=== PATIENT | male | born 1985 | race Caucasian/White ===

== ENCOUNTER 2017-01-18 08:11 | Observation (INO) | payer OTHER ==
[~2017-01-18] VITALS: Ht 190.5 cm; Wt 98.0 kg
[~2017-01-18 08:11] MED LIST: MULT-506 PO; PRLSR20 PO
[2017-01-18] MEDS ORDERED: SODIUM CHLORIDE 0.9% 1000ML 2,000 ML IV STA (08:20)
[2017-01-18] MEDS ORDERED: DILTIAZEM BOLUS / DRIP IV STA (08:20)
[2017-01-18] MEDS ORDERED: ONDANSETRON INJ 2 MG/ML 2 ML VIAL IV STA (08:23)
[2017-01-18] MEDS ORDERED: ASPIRIN 81 MG CHEW PO STA (08:24)
[2017-01-18] MEDS ORDERED: DILTIAZEM HCL INJ 125 MG in DEXTROSE 5% 100ML IV PRN (08:30)
[2017-01-18 08:35] LABS: BASO % 0.4 %; BASO ABS # 0.04 K/uL (0-0.2); COMPLETE YES; HEMATOCRIT 45.4 % (42-52); IG% 0.3 %; LYMPH % 16.5 %; LYMPH ABS # 1.82 K/uL (1.2-3.4); MEAN CELL VOLUME 86.5 fL (80-100); MEAN CORPUSCULAR HEMOGLOBIN 29.7 pg (25-34); MEAN CORPUSCULAR HGB CONC 34.4 g/dl (32-36); MEAN PLATELET VOLUME 9.3 fL (7.4-10.4); MONO % 4.2 %; NEUT % 76.6 %; PLATELET COUNT 165 K/uL (130-400); RED BLOOD COUNT 5.25 M/uL (4.7-6.1); WHITE BLOOD COUNT 11.04 K/uL (4.8-10.8)
--- NOTE | 2017-01-18 08:35 | DIAGNOSTIC IMAGING REPORT ---
SINGLE VIEW CHEST CLINICAL HISTORY: Atypical chest pain. FINDINGS: An AP, portable, upright chest radiograph is compared to study dated 04/15/2015. The examination is degraded by portable technique and patient rotation. The cardiomediastinal silhouette is unremarkable. The lungs and pleural spaces are clear. No pneumothorax is seen. The bony thorax is grossly intact. IMPRESSION: No active disease in the chest. Electronically signed by: Danny Kimble M.D. 01/18/2017 8:34 AM Dictated Date/Time: 01/18/2017 8:34 AM
[2017-01-18] MEDS ORDERED: DILTIAZEM HCL 5 MG/ML 5 ML VIAL IV SCH (08:45)
[2017-01-18 08:56] VITALS: BP 124/73; PULSE 74; TEMP 37.1; O2SAT 98; Ht 190.5 cm; Wt 98.0 kg
[2017-01-18 08:56] LABS: BLOOD UREA NITROGEN 12 mg/dl (7-18); BUN/CREATININE RATIO 12.1 (10-20); CALCIUM 8.9 mg/dl (8.5-10.1); CARBON DIOXIDE 27 mmol/L (21-32); CHLORIDE 110 mmol/L (98-107); CREATININE 0.98 mg/dl (0.60-1.40); GLUCOSE 105 mg/dl (70-99); POTASSIUM 4.2 mmol/L (3.5-5.1); SODIUM 144 mmol/L (136-145)
[2017-01-18 09:01] LABS: CKMB/CK RATIO 1.5 (0-3.0)
[2017-01-18] MEDS ORDERED: METOPROLOL TARTRATE 1 MG/ML VIAL IV STA (09:19)
[2017-01-18] MEDS ORDERED: METOPROLOL TARTRATE 50 MG TAB ONE (09:27)
[2017-01-18] MEDS ORDERED: METOPROLOL TARTRATE 1 MG/ML VIAL ONE (09:27)
[2017-01-18] MEDS ORDERED: SODIUM CHLORIDE 0.9% 1000ML 1,000 ML IV SCH (09:58)
[2017-01-18] MEDS ORDERED: POLYETHYLENE (MIRALAX) 17 GM PACK PO PRN (10:00)
[2017-01-18] MEDS ORDERED: NITROGLYCERIN 0.4 MG SL PER TAB CHARGE SL PRN (10:00)
[2017-01-18] MEDS ORDERED: ACETAMINOPHEN 325 MG TAB PO PRN (10:00)
[2017-01-18] MEDS ORDERED: MAGNESIUM HYDROXIDE SUSP 30 ML UDC PO PRN (10:00)
[2017-01-18] MEDS ORDERED: ALUMINUM/MAGNESIUM/SIMETH (MAALOX MAX) 30 ML UDC PO PRN (10:00)
[2017-01-18] MEDS ORDERED: ONDANSETRON INJ 2 MG/ML 2 ML VIAL IV PRN (10:00)
[2017-01-18] MEDS ORDERED: METOPROLOL TARTRATE 1 MG/ML VIAL IV PRN (10:15)
--- NOTE | 2017-01-18 10:17 | History and Physical ---
History & Physical Date & Time of Service: Jan 18, 2017 at 10:01 Chief Complaint: Chest Pain Primary Care Physician: No Doctor, Assigned History of Present Illness Source: patient, clinic records, hospital records Patient is a pleasant 31 y/o male, with PMHx of paroxysmal a.fib, who presented to the ED because of chest pain/palpitations that began this AM after a night of drinking. Arrival to ED showed patient in a.fib w/ RVR in the 170s. Patient has had multiple episodes of a.fib in the past- he denies correlation with drinking, stating he has had episodes with drinking and without. Patient was started on Diltiazem drip in the ED, with modest improvement in HR. Diltiazem drip was discontinued due to hypotension. Patient admits to persistent chest pressure and palpations. He admits to 1 episode of vomiting but contributes it due to his excess alcohol intake last evening. Patient denies any fever, chills , sweats, lightheadedness, dizziness, vision changes, edema, SOB, wheezing, cough, abdominal pain, nausea, vomiting, diarrhea, urinary symptoms, melena, numbness/tingling, weakness, muscle/joint pain, anxiety/depression, active bleeding, or new skin discoloration/changes. Past Medical/Surgical History Medical Problems: 1. Paroxysmal a.fib Family History Heart disease Social History Smoking Status: Current Some Day Smoker Alcohol Use: occasionally Marital Status: in relationship Occupational Status: employed Allergies Coded Allergies: No Known Allergies (Unverified , 01/18/17) Home Medications Scheduled Metoprolol Succinate (Metoprolol Succinate ER), 25 MG PO DAILY Multivitamin (Multivitamin), 1 TAB PO DAILY Physical Exam Vital Signs Date Time Temp Pulse Resp B/P (MAP) Pulse Ox O2 Delivery O2 Flow Rate FiO2 01/18/17 09:13 137 16 120/74 97 Room Air 01/18/17 08:56 98 Room Air 01/18/17 08:45 108 01/18/17 08:42 117 20 124/72 98 Room Air 01/18/17 08:30 170 18 105/75 100 Room Air 01/18/17 08:25 170 01/18/17 08:20 37.1 131 20 98/70 99 Room Air General Appearance: WD/WN, no apparent distress Head: normocephalic, atraumatic Eyes: normal inspection, PERRL ENT: hearing grossly normal Neck: supple Respiratory/Chest: lungs clear, normal breath sounds, no respiratory distress, no accessory muscle use Cardiovascular: + tachycardia, + irregularly irregular Abdomen/GI: normal bowel sounds Back: normal inspection Extremities/Musculoskelatal: no calf tenderness, no pedal edema Neurologic/Psych: alert, normal mood/affect, oriented x 3 Skin: normal color, warm/dry, no rash Diagnostics Laboratory Results Results Past 24 Hours Test 01/18/17 08:20 Range/Units White Blood Count 11.04 4.8-10.8 K/uL Red Blood Count 5.25 4.7-6.1 M/uL Hemoglobin 15.6 14.0-18.0 g/dL Hematocrit 45.4 42-52 % Mean Corpuscular Volume 86.5 80-100 fL Mean Corpuscular Hemoglobin 29.7 25-34 pg Mean Corpuscular Hemoglobin Concent 34.4 32-36 g/dl Platelet Count 165 130-400 K/uL Mean Platelet Volume 9.3 7.4-10.4 fL Neutrophils (%) (Auto) 76.6 % Lymphocytes (%) (Auto) 16.5 % Monocytes (%) (Auto) 4.2 % Eosinophils (%) (Auto) 2.0 % Basophils (%) (Auto) 0.4 % Neutrophils # (Auto) 8.47 1.4-6.5 K/uL Lymphocytes # (Auto) 1.82 1.2-3.4 K/uL Monocytes # (Auto) 0.46 0.11-0.59 K/uL Eosinophils # (Auto) 0.22 0-0.5 K/uL Basophils # (Auto) 0.04 0-0.2 K/uL RDW Standard Deviation 40.9 36.4-46.3 fL RDW Coefficient of Variation 12.9 11.5-14.5 % Immature Granulocyte % (Auto) 0.3 % Immature Granulocyte # (Auto) 0.03 0.00-0.02 K/uL Sodium Level 144 136-145 mmol/L Potassium Level 4.2 3.5-5.1 mmol/L Chloride Level 110 98-107 mmol/L Carbon Dioxide Level 27 21-32 mmol/L Anion Gap 7.0 3-11 mmol/L Blood Urea Nitrogen 12 7-18 mg/dl Creatinine 0.98 0.60-1.40 mg/dl Est Creatinine Clear Calc Drug Dose 129.3 ml/min Estimated GFR () 117.8 Estimated GFR (Non- 101.6 BUN/Creatinine Ratio 12.1 10-20 Random Glucose 105 70-99 mg/dl Calcium Level 8.9 8.5-10.1 mg/dl Magnesium Level 2.1 1.8-2.4 mg/dl Total Creatine Kinase 123 39-308 U/L Creatine Kinase MB 1.8 0.5-3.6 ng/ml Creatine Kinase MB Ratio 1.5 0-3.0 Troponin I < 0.015 0-0.045 ng/ml Diagnostic Radiology SINGLE VIEW CHEST CLINICAL HISTORY: Atypical chest pain. FINDINGS: An AP, portable, upright chest radiograph is compared to study dated 04/15/2015. The examination is degraded by portable technique and patient rotation. The cardiomediastinal silhouette is unremarkable. The lungs and pleural spaces are clear. No pneumothorax is seen. The bony thorax is grossly intact. IMPRESSION: No active disease in the chest. Electronically signed by: Danny Kimble M.D. 01/18/2017 8:34 AM Dictated Date/Time: 01/18/2017 8:34 AM The status of this report is Signed. Draft = Not yet reviewed or approved by Radiologist. Signed = Reviewed and approved by Radiologist. EKG BRIE MENA ID:[id number] 18-JAN-2017 08:23:14 [facility] Atrial fibrillation with rapid ventricular response Abnormal ECG When compared with ECG of 15-APR-2015 01:16, No significant change was found Confirmed by REED BROWN MD ([id number]) on 01/18/2017 9:37:01 AM 25mm/s 10mm/mV 150Hz 8.0 SP2 12SL 241 KRIS: 0 Referred by: Referred Self Confirmed By: MD KEVIN MCBRIDE Vent. rate 145 BPM WA interval * ms QRS duration 68 ms QT/QTc 232/360 ms P-R-T axes * 31 45 1985 (31 yr) Male 1in 0lb Room: Loc:15 Gear Design Engineer:SHRUTHI Rhoades ind: Impression Assessment and Plan Patient is a pleasant 31 y/o male, with PMHx of paroxysmal a.fib, who presented to the ED because of chest pain/palpitations that began this AM after a night of drinking. Arrival to ED showed patient in a.fib w/ RVR in the 170s. Paroxysmal a.fib w/ RVR, likely secondary to excess alcohol intake: - Admit to tele observation for cardiac monitoring - Cardiac enzymes negative x1 - EKG w/ CP and QAM - Potassium and magnesium WNL - Treated w/ 3L of IVF in ED - IV Diltiazem drip started in ED- d/c and give Metoprolol 25 mg + Digoxin 0.5 mg - IV Metoprolol 5 mg PRN for HR >120 w/ hold parameters - Check Lyme screen Hypotensive, likely secondary to IV Diltiazem drip/dehydration: Treated w/ IVF GI Prophylaxis: Maalox PRN, IV Zofran PRN, Colace and/or Milk of Mag PRN DVT prophylaxis: Lovenox 40 mg SQ q24 hrs, YULI and SCDs Code Status: LEVEL I, FULL Dispo: Discharge to home once medically stable, likely later this afternoon- no discharge needs anticipated PA Physician Supervision Note: I interviewed and examined the patient. Discussed with Sarah BARR and agree with findings and plan as documented in the note. Any exceptions or clarifications are listed here: None PT with Afib RVR has history of same, with cardiology oversight stopped metoprolol 2 months ago, was working outside then had a few drinks, now with CP associated tachycardia PE shows heart rate irreg in 120's, bp lower car tachy, no murmur,lungs clear Pt was given metoprolol iv and Po plus some digoxin, "broke" to NSR in the ER Observed on floor and ambulated without symptoms or recurrence in room and updated will take patient home and follow up with molder hand Documented By: Aly Woody Level of Care Telemetry Advanced Directives Existing Living Will: No Existing Power of Penology Teacher: No Resuscitation Status FULL RESUSCITATION VTE Prophylaxis VTE Risk Assessment Done? Y/N: Yes Risk Level: Moderate Given or contraindicated: Enoxaparin (Lovenox)SQ, T.E.D. Stockings, SCD's
[2017-01-18] MEDS ORDERED: DIGOXIN 0.25 MG TAB PO STA (10:28)
[2017-01-18 10:51] VITALS: O2SAT 99
[2017-01-18 10:53] LABS: LYME DISEASE AB IGG NEG (NEG); LYME DISEASE AB IGM NEG (NEG)
[2017-01-18 11:22] LABS: INR 0.9 (0.9-1.1)
[2017-01-18] MEDS ORDERED: IV FLUIDS COMPLETED PRN (11:30)
--- NOTE | 2017-01-18 12:08 | EMERGENCY ROOM VISIT NOTE ---
History Report prepared by Alise: Neto Welch Under the Supervision of: Ham PatelO. First contact with patient: 08:15 Chief Complaint: CHEST PAIN Stated Complaint: CHEST PAIN History of Present Illness The patient is a 31 year old male who presents to the Emergency Room with complaints of persistent chest pain that started about an hour ago. He says that this feels like his prior episodes of atrial fibrillation. The patient states that he has had episodes of atrial fibrillation 5 times in the past. He notes that the chest pain is in the center of his chest, and feels like someone is standing on him. The patient states that he vomited this morning, which triggered the chest pain. He adds that he drank a few beers last night, and sometimes drinking coincides with his atrial fibrillation. Sometimes the episodes do not coincide with drinking. He thinks that the vomiting was due to drinking last night. The patient denies any shortness of breath or calf swelling. The patient states that when he has had to come to the hospital for his episodes, he was given Cardizem. He is a non-smoker. The patient does not take any blood thinners. He has no personal history of heart disease or cancer. Source of History: patient Onset: An hour ago Position: chest Quality: other (feels like someone standing on chest) Timing: other (persistent) Associated Symptoms: + vomiting, No SOB Note: Associated symptoms: Denies calf swelling. Review of Systems See HPI for pertinent positives & negatives. A total of 10 systems reviewed and were otherwise negative. Past Medical & Surgical Medical Problems: (1) Atrial fibrillation Family History Heart disease Social History Smoking Status: Never Smoker Alcohol Use: occasionally Marital Status: in relationship Housing Status: lives with significant other Occupation Status: employed Current/Historical Medications Scheduled Multivitamin (Multivitamin), 1 TAB PO DAILY Allergies Coded Allergies: No Known Allergies (Unverified , 01/18/17) Physical Exam Vital Signs Date Time Temp Pulse Resp B/P (MAP) Pulse Ox O2 Delivery O2 Flow Rate FiO2 01/18/17 09:50 132 20 94/84 100 Room Air 01/18/17 09:40 128 16 61/55 100 Room Air 01/18/17 09:30 122 20 112/70 99 Room Air 01/18/17 09:26 133 20 59/48 100 Room Air 01/18/17 09:20 120 16 89/65 97 01/18/17 09:13 137 16 120/74 97 Room Air 01/18/17 08:56 37.1 74 18 124/73 98 Room Air 01/18/17 08:45 108 01/18/17 08:42 117 20 124/72 98 Room Air 01/18/17 08:30 170 18 105/75 100 Room Air 01/18/17 08:25 170 01/18/17 08:20 37.1 131 20 98/70 99 Room Air Physical Exam GENERAL: sitting up in bed, disheveled, moderate distress EYE EXAM: normal conjunctiva OROPHARYNX: no exudate, no erythema, lips, buccal mucosa, and tongue normal and mucous membranes are moist NECK: supple, no nuchal rigidity, no adenopathy, non-tender LUNGS: Clear to auscultation. Normal chest wall mechanics HEART: Tachycardic, irregularly irregular rhythm ABDOMEN: abdomen soft, non-tender, normo-active bowel sounds, no masses, no rebound or guarding. BACK: Back is symmetrical on inspection and there is no deformity, no midline tenderness, no CVA tenderness. SKIN: no rashes and no bruising UPPER EXTREMITIES: upper extremities are grossly normal. LOWER EXTREMITIES: Calves equal bilaterally. NEURO EXAM: Normal sensorium, cranial nerves II-XII grossly intact, normal speech, no gross weakness of arms, no gross weakness of legs. Medical Decision & Procedures ER Provider Diagnostic Interpretation: X-ray results as stated below per my review and the radiologist's interpretation : SINGLE VIEW CHEST CLINICAL HISTORY: Atypical chest pain. FINDINGS: An AP, portable, upright chest radiograph is compared to study dated 04/15/2015. The examination is degraded by portable technique and patient rotation. The cardiomediastinal silhouette is unremarkable. The lungs and pleural spaces are clear. No pneumothorax is seen. The bony thorax is grossly intact. IMPRESSION: No active disease in the chest. Electronically signed by: Danny Kimble M.D. 01/18/2017 8:34 AM Dictated Date/Time: 01/18/2017 8:34 AM Laboratory Results 01/18/17 08:20 Red Blood Count 5.25, Mean Corpuscular Volume 86.5, Mean Corpuscular Hemoglobin 29.7, Mean Corpuscular Hemoglobin Concent 34.4, Mean Platelet Volume 9.3, Neutrophils (%) (Auto) 76.6, Lymphocytes (%) (Auto) 16.5, Monocytes (%) (Auto) 4.2, Eosinophils (%) (Auto) 2.0, Basophils (%) (Auto) 0.4, Neutrophils # (Auto) 8.47, Lymphocytes # (Auto) 1.82, Monocytes # (Auto) 0.46, Eosinophils # (Auto) 0.22, Basophils # (Auto) 0.04 01/18/17 08:20 Test 01/18/17 08:20 White Blood Count 11.04 K/uL (4.8-10.8) Red Blood Count 5.25 M/uL (4.7-6.1) Hemoglobin 15.6 g/dL (14.0-18.0) Hematocrit 45.4 % (42-52) Mean Corpuscular Volume 86.5 fL (80-100) Mean Corpuscular Hemoglobin 29.7 pg (25-34) Mean Corpuscular Hemoglobin Concent 34.4 g/dl (32-36) Platelet Count 165 K/uL (130-400) Mean Platelet Volume 9.3 fL (7.4-10.4) Neutrophils (%) (Auto) 76.6 % Lymphocytes (%) (Auto) 16.5 % Monocytes (%) (Auto) 4.2 % Eosinophils (%) (Auto) 2.0 % Basophils (%) (Auto) 0.4 % Neutrophils # (Auto) 8.47 K/uL (1.4-6.5) Lymphocytes # (Auto) 1.82 K/uL (1.2-3.4) Monocytes # (Auto) 0.46 K/uL (0.11-0.59) Eosinophils # (Auto) 0.22 K/uL (0-0.5) Basophils # (Auto) 0.04 K/uL (0-0.2) RDW Standard Deviation 40.9 fL (36.4-46.3) RDW Coefficient of Variation 12.9 % (11.5-14.5) Immature Granulocyte % (Auto) 0.3 % Immature Granulocyte # (Auto) 0.03 K/uL (0.00-0.02) Prothrombin Time 10.0 SECONDS (9.0-12.0) Prothromb Time International Ratio 0.9 (0.9-1.1) Anion Gap 7.0 mmol/L (3-11) Est Creatinine Clear Calc Drug Dose 129.3 ml/min Estimated GFR () 117.8 Estimated GFR (Non- 101.6 BUN/Creatinine Ratio 12.1 (10-20) Calcium Level 8.9 mg/dl (8.5-10.1) Magnesium Level 2.1 mg/dl (1.8-2.4) Total Creatine Kinase 123 U/L (39-308) Creatine Kinase MB 1.8 ng/ml (0.5-3.6) Creatine Kinase MB Ratio 1.5 (0-3.0) Troponin I < 0.015 ng/ml (0-0.045) Lyme Disease IgG Antibody NEG (NEG) Lyme Disease IgM Antibody NEG (NEG) Laboratory results per my review. Medications Administered Medications (Trade) Dose Ordered Sig/Cierra Route Start Time Stop Time Status Last Admin Dose Admin Sodium Chloride 2,000 ml @ 999 mls/hr Q2H1M STAT IV 01/18/17 08:20 01/18/17 10:20 DC 01/18/17 08:41 999 MLS/HR Ondansetron HCl (Zofran Inj) 4 mg NOW STAT IV 01/18/17 08:23 01/18/17 08:24 DC 01/18/17 08:38 4 MG Aspirin (Aspirin Chew) 324 mg NOW STAT PO 01/18/17 08:24 01/18/17 08:25 DC 01/18/17 08:38 324 MG Diltiazem HCl (Cardizem Inj) 15 mg TODAY@0845 IV 01/18/17 08:45 01/18/17 08:46 DC 01/18/17 08:38 10 MG Diltiazem HCl 125 mg/Dextrose 125 ml @ 0 mls/hr Q0M PRN IV 01/18/17 08:30 01/18/17 09:21 DC 01/18/17 08:48 5 MLS/HR Metoprolol Tartrate (Lopressor Iv) 5 mg NOW STAT IV 01/18/17 09:19 01/18/17 09:47 DC 01/18/17 10:07 5 MG Metoprolol Tartrate (Lopressor Tab) 50 mg STK-MED ONCE .ROUTE 01/18/17 09:27 01/18/17 09:28 DC 01/18/17 10:08 50 MG ECG Indication: chest pain Rate (beats per minute): 157 Rhythm: atrial fibrillation (with RVR) Findings: other (poor baseline) ED Course ED COURSE: Vital signs were reviewed and showed tachycardic vitals. The patients medical record was reviewed The above diagnostic studies were performed and reviewed. ED treatments and interventions as stated above. 0815: The patient was evaluated in room B2. A complete history and physical examination was performed. 0820: Ordered Cardizem Bolus/Drip 1 ea IV, NSS 2000 ml @ 999 mls/hr IV. 0823: Ordered Zofran Inj 4 mg IV. 0824: Ordered Aspirin Chew 324 mg PO. 0833: I reevaluated the patient and his pressure is 110 systolic and he is getting the Cardizem bolus currently. 0845: Ordered Cardizem Inj 15 mg IV. 0848: I reevaluated the patient and he does not want to be shocked. 0909: Upon reevaluation, the patient is resting with a heart rate floating from the 110's to 120's. I discussed my findings with the patient and he understands and agrees with the treatment plan. Based on the patients age, coexisting illnesses, exam and lab findings the decision to treat as an inpatient was made. The patient remained stable while under my care. The patient will be evaluated for further management. 0915: I discussed the patient with Dr. Woody - [facility] mechanic assistant - he will evaluate the patient for further treatment. 0945: Cardizem drip was stopped in order to start oral Metoprolol. The patient' s systolic blood pressure was in the 120s, then dropped down to 60 so we put the patient on a pressure bag and normal saline, and his pressure is back into the 110s. Medical Decision Differential diagnoses includes but is not limited to acute coronary syndrome, myocardial infarction, pericarditis, pulmonary embolus, aortic dissection, pneumonia, pneumothorax, musculoskeletal, shingles, esophageal. Medication Reconciliation: I attest that I have personally reviewed the patient' s current medication list. Blood pressure screening: Patient was found to have normal blood pressure on screening and does not require follow-up. Patient is a 31-year-old male with a past medical history of intermittent/ paroxysmal A. fib which is generally present following drinking alcohol. He was out drinking last night and notes that suddenly this morning he felt his heart racing and began to have severe chest pain. Upon presentation to the ER he was in A. fib with RVR with a heart rate in the 170s. He was complaining of a severe tightness in his chest. Blood pressure was initially in the 90s. He was given a bolus normal saline and his blood pressure came up into the 100s at which time he was given a bolus of Cardizem. Heart return to down into the low 100s. Blood pressure came up to the 130s to 140s systolically. He was placed on Cardizem drip. Discussed with internal medicine as he remained in A. fib with mild chest pain. He was previous a given aspirin. Internal medicine and also Cardizem drip at which time he became tachycardic and his blood pressure dropped into the 60s systolic. 2 L of IV normal saline were given via boluses/ pressure bags. Systolic blood pressures came back. His heart rate did trend down again. He was admitted to internal medicine for further workup. Just prior to transfer to the floor he converted to a sinus rhythm. Consults Time Called: 909 Consulting Physician: Dr. Annalise JAIMES mechanic assistant Returned Call: [phone] I discussed the patient with Dr. Annalise JAIMES mechanic assistant - he will evaluate the patient for further treatment. Impression Primary Impression: Atrial fibrillation with RVR Critical Care I have personally spent 35 minutes of critical care time in the direct management of this patient. This includes bedside care, interpretation of diagnostic studies, and testing, discussion with consultants, patient, and family members, and other required patient management activities. This 35 minutes is in excess of all separately billable procedures. Scribe Attestation The scribe's documentation has been prepared under my direction and personally reviewed by me in its entirety. I confirm that the note above accurately reflects all work, treatment, procedures, and medical decision making performed by me. Departure Information Dispostion Being Evaluated By Hospitalist Referrals No Doctor, Assigned (PCP) Patient Instructions My [facility]
[2017-01-18] MEDS: METOPROLOL TARTRATE 25 MG TAB PO SCH ×2 (12:38→12:40)
[2017-01-18] MEDS ORDERED: ENOXAPARIN 40 MG/0.4 ML SYR SC SCH (13:00)
[2017-01-18] MEDS ORDERED: TPRSR25 PO (14:56)
--- NOTE | 2017-01-18 14:58 | Discharge Instructions ---
Discharge Instructions Date of Service Jan 18, 2017. Admission Reason for Admission: Atrial Fibrillation W/Rvr Discharge Discharge Diagnosis / Problem: atrial fibrillation Discharge Goals Goal(s): Diagnostic testing, Therapeutic intervention Activity Recommendations Activity Limitations: resume your previous activity . Current Hospital Diet Patient's current hospital diet: Regular Diet Discharge Diet Recommended Diet: Regular Diet Pending Studies Studies pending at discharge: no Medical Emergencies . Who to Call and When: Medical Emergencies: If at any time you feel your situation is an emergency, please call 911 immediately. . Non-Emergent Contact Non-Emergency issues call your: Primary Care Provider, Suction Drum Drier Operator Call Non-Emergent contact if: temperature is above 101, your pain is unusual for you . . "Provider Documentation" section prepared by Aly Woody. . VTE Core Measure Inpt VTE Proph given/why not?: Enoxaparin (Lovenox)ANABEL, TMontanaEMackenzie Vasquez, SCD's
[2017-01-18 15:07] VITALS: BP 138/78; PULSE 78; TEMP 37.1; O2SAT 99
--- NOTE | 2017-01-18 16:20 | Discharge Summary ---
Discharge Summary Date of Service Jan 18, 2017. Discharge Summary Admission Date: Jan 18, 2017 at 10:01 Discharge Date: Jan 18, 2017 Discharge Disposition: Home Principal Diagnosis: afib rvr Medication Reconciliation New Medications: Metoprolol Succinate (Metoprolol Succinate ER) 25 Mg Tabcr 25 MG PO DAILY, #30 DOSE 6 Refills Continued Medications: Multivitamin (Multivitamin) Tab 1 TAB PO DAILY Discharge Exam Review of Systems: Constitutional: No fever, No chills, No sweats Respiratory: No shortness of breath, No dyspnea on exertion Cardiovascular: No chest pain, No orthopnea Abdomen: No pain, No nausea Physical Exam: General Appearance: WD/WN, no apparent distress Respiratory/Chest: chest non-tender, lungs clear, normal breath sounds Cardiovascular: regular rate, rhythm, no murmur Hospital Course PT with Afib RVR has history of same, with cardiology oversight stopped metoprolol 2 months ago, was working outside then had a few drinks, now with CP associated tachycardia Pt was given metoprolol iv and Po plus some digoxin, "broke" to NSR in the ER Observed on floor and ambulated without symptoms or recurrence in room and updated will take patient home and follow up with director community organization , RX for metoprolol succinate sent to pharmacy Documented By: Aly Woody Total Time Spent: Greater than 30 minutes This includes examination of the patient, discharge planning, medication reconciliation, and communication with other providers. Discharge Instructions Please refer to the electronic Patient Visit Report (Discharge Instructions) for additional information.
[2017-01-19] MEDS ORDERED: MULTIVITAMIN TAB PO SCH (09:00)
== END 2017-01-18 15:49 | disposition home or self-care (01) ==
LOC: C.EDB 08:13 → C.2T 10:01 → ENRESERV 10:47
PROVIDERS: ADMIT Internal Medicine; ATTEND Internal Medicine
DX: I48.91 Unspecified atrial fibrillation (principal); Z82.49 Family history of ischemic heart disease and other diseases of the circulatory system; F17.200 Nicotine dependence, unspecified, uncomplicated